=== PATIENT | female | born 1945 | race Two or more races ===

== ENCOUNTER 2019-12-02 06:30 | Day surgery (SDC) | payer OTHER | END 2019-12-02 12:15 | disposition home or self-care (01) | LOC: AMB-ENDOS 06:30 → ADM 12:45 → AMB-ENDOS 12:45 | PROVIDERS: ATTEND Colon & Rectal Surgery | DX: K63.5 Polyp of colon (principal); K64.8 Other hemorrhoids; Z20.828 Contact with and (suspected) exposure to other viral communicable diseases ==